=== PATIENT | male | born 1990 | race Caucasian/White ===

== ENCOUNTER 2019-03-13 15:44 | Inpatient (IN) | payer MEDICAID ==
[~2019-03-13] VITALS: Ht 182.9 cm; Wt 104.2 kg
[2019-03-13] MEDS ORDERED: LISI-661 PO (18:05)
[2019-03-13] MEDS ORDERED: ARIP5TAB8 PO (18:05)
[2019-03-13] MEDS ORDERED: ATOR20TA86 PO (18:05)
[2019-03-13] MEDS ORDERED: CARV3 PO (18:05)
[2019-03-13] MEDS ORDERED: SERT100T12 PO (18:05)
[2019-03-13] MEDS ORDERED: GABA-531 PO (18:05)
[2019-03-13] MEDS ORDERED: HALOPERIDOL 5 MG TABLET PO PRN (18:15)
[2019-03-13] MEDS ORDERED: PNEUMOCOCCAL VACCINE POLYVALENT 0.5 ML VIAL [PPSV23] IM ONE (18:45)
[2019-03-13 19:20] VITALS: BP 125/94
[2019-03-13 19:53] VITALS: BP 125/94
[2019-03-13 20:15] VITALS: BP 117/86
[2019-03-13] MEDS: LORazepam 2 MG TABLET PO PRN (20:29)
[2019-03-13] MEDS: ZOLPIDEM TARTRATE 10 MG TABLET PO PRN (21:00)
[2019-03-13 21:15] VITALS: BP 115/68
[2019-03-13 22:23] VITALS: BP 122/83
[2019-03-14] VITALS (9 sets, daily range): BP systolic 114–149; BP diastolic 78–98
[2019-03-14 08:24] LABS: BASOPHILS % (AUTO) 0.6 % (0.0-2.0); EOSINOPHILS % (AUTO) 5.5 % (1.0-6.0); HEMATOCRIT 41.6 % (41-53); LYMPHOCYTES # (AUTO) 1.6 K/uL (1.0-4.8); LYMPHOCYTES % (AUTO) 21.8 % (22.0-44.0); MEAN CORPUSCULAR HGB CONC 33.7 G/dL (31.0-37.0); MEAN CORPUSCULAR VOLUME 92 fL (80-100); MONOCYTES # (AUTO) 0.7 K/uL (0.1-1.0); MONOCYTES % (AUTO) 9.6 % (2.0-9.0); NEUTROPHILS # (AUTO) 4.6 K/uL (1.8-7.7); NEUTROPHILS % (AUTO) 62.5 % (40.0-70.0); PLATELET COUNT (AUTO) 218 K/uL (150-450); RED BLOOD CELL COUNT(AUTO) 4.51 MIL/uL (4.50-5.90)
[2019-03-14 08:25] LABS: HEMOGLOBIN A1C 5.2 % (4.5-6.2)
[2019-03-14 08:45] LABS: ALANINE AMINOTRANSFERASE 34 U/L (12-78); ALBUMIN 3.3 g/dL (3.4-5.0); ALKALINE PHOSPHATASE 60 U/L (46-116); ANION GAP 7 mmol/L (8-16); ASPARTATE AMINOTRANSFERASE 34 U/L (15-37); BILIRUBIN,TOTAL 0.5 mg/dL (0.1-1.0); CALCIUM, TOTAL 9.5 mg/dL (8.8-10.5); CARBON DIOXIDE 30 mmol/L (22-29); CHLORIDE 100 mmol/L (98-107); CHOL/HDL RATIO 3.8 (4.2-7.3); CHOLESTEROL 182 mg/dL (131-200); CREATININE 1.04 mg/dL (0.60-1.30); FREE T4 (FREE THYROXINE) 0.69 ng/dL (0.76-1.46); GLOMERULAR FILTR. RATE CALC > 60 mL/min (>60); GLUCOSE,RANDOM 82 mg/dL (70-110); HDL CHOLESTEROL 48 mg/dL (40-60); LDL CHOL (CALC.) 79 mg/dL (0-130); POTASSIUM 4.4 mmol/L (3.5-5.1); SODIUM SERUM 137 mmol/L (136-145); THYROID STIMULATING HORMONE 1.76 uIU/mL (0.36-3.74); TOTAL PROTEIN, SERUM 6.4 g/dL (6.4-8.2); TRIGLYCERIDES 274 mg/dL (15-150); UREA NITROGEN, BLOOD 13 mg/dL (7-18)
[2019-03-14] MEDS: LORazepam 2 MG TABLET PO PRN ×2 (10:07→14:45)
[2019-03-14] MEDS ORDERED: ChlordiazePOXIDE HCL 25 MG CAPSULE PO PRN (10:15)
[2019-03-14] MEDS: GABAPENTIN 300 MG CAPSULE PO SCH ×2 (12:48→16:20)
[2019-03-14] MEDS: NICOTINE POLACRILEX 2 MG LOZENGE PO PRN ×2 (12:48→17:22)
[2019-03-14] MEDS: ARIPiprazole 5 MG TABLET PO SCH (12:48)
[2019-03-14] MEDS ORDERED: ACETAMINOPHEN 325 MG TABLET PO PRN (13:45)
[2019-03-14] MEDS ORDERED: CloNIDine HCL 0.1 MG TABLET PO PRN (13:45)
[2019-03-14] MEDS: IBUPROFEN 600 MG TABLET PO PRN (18:59)
[2019-03-14] MEDS: SERTRALINE HCL 100 MG TABLET PO SCH (20:16)
[2019-03-15] VITALS (7 sets, daily range): BP systolic 116–132; BP diastolic 71–96
[2019-03-15] MEDS ORDERED: ChlordiazePOXIDE HCL 25 MG CAPSULE PO PRN (07:00)
[2019-03-15] MEDS: ARIPiprazole 5 MG TABLET PO SCH (08:25)
[2019-03-15] MEDS: LORazepam 2 MG TABLET PO PRN (08:26)
[2019-03-15] MEDS: GABAPENTIN 300 MG CAPSULE PO SCH ×3 (08:26→16:01)
[2019-03-15] MEDS: ChlordiazePOXIDE HCL 25 MG CAPSULE PO SCH ×4 (08:26→20:02)
[2019-03-15] MEDS: NICOTINE POLACRILEX 2 MG LOZENGE PO PRN (08:33)
[2019-03-15] MEDS: IBUPROFEN 600 MG TABLET PO PRN (18:21)
[2019-03-15] MEDS: SERTRALINE HCL 100 MG TABLET PO SCH (20:01)
[2019-03-15] MEDS: ZOLPIDEM TARTRATE 10 MG TABLET PO PRN (21:04)
[2019-03-16 05:46] VITALS: BP 110/73
[2019-03-16 05:49] VITALS: BP 110/73
[2019-03-16] MEDS: ChlordiazePOXIDE HCL 25 MG CAPSULE PO SCH ×2 (08:09→12:12)
[2019-03-16] MEDS: GABAPENTIN 300 MG CAPSULE PO SCH ×2 (08:09→12:12)
[2019-03-16] MEDS: ARIPiprazole 5 MG TABLET PO SCH (08:09)
[2019-03-16 08:17] VITALS: BP 125/81
[2019-03-16 08:20] VITALS: BP 125/81
[2019-03-16] MEDS: LORazepam 2 MG TABLET PO PRN (08:29)
[2019-03-16 09:50] VITALS: BP 120/80
[2019-03-16] MEDS: IBUPROFEN 600 MG TABLET PO PRN (09:50)
[2019-03-16] MEDS: NICOTINE POLACRILEX 2 MG LOZENGE PO PRN (10:55)
[2019-03-16] MEDS ORDERED: ARIP5TAB8 PO (11:55)
[2019-03-16] MEDS ORDERED: SERT100T12 PO ×2 (11:55→13:29)
[2019-03-16] MEDS ORDERED: GABA-531 PO (13:29)
[2019-03-17] MEDS ORDERED: ChlordiazePOXIDE HCL 10 MG CAPSULE PO PRN (07:00)
[2019-03-17] MEDS ORDERED: ChlordiazePOXIDE HCL 10 MG CAPSULE PO SCH (09:00)
[2019-03-18] MEDS ORDERED: ChlordiazePOXIDE HCL 10 MG CAPSULE PO PRN (07:00)
== END 2019-03-16 14:30 | disposition home or self-care (01) | DRG 751 ==
LOC: B2S 18:31 → UNDOADMIN 18:31 → B3A 18:31 → B2S 18:35 → B3A 18:35
PROVIDERS: ADMIT Psychiatry & Neurology Child & Adolescent Psychiatry; ATTEND Psychiatry & Neurology Child & Adolescent Psychiatry
DX: F33.2 Major depressive disorder, recurrent severe without psychotic features (principal); F25.9 Schizoaffective disorder, unspecified; E78.5 Hyperlipidemia, unspecified; F10.20 Alcohol dependence, uncomplicated; G89.29 Other chronic pain; I10 Essential (primary) hypertension; F41.9 Anxiety disorder, unspecified; F17.210 Nicotine dependence, cigarettes, uncomplicated; F12.10 Cannabis abuse, uncomplicated; Z79.899 Other long term (current) drug therapy
CPT/HCPCS: 80074; 83036; 84439; 84443; 87081; 90732

== ENCOUNTER 2020-02-15 06:20 | Inpatient (IN) | payer MEDICAID ==
[~2020-02-15] VITALS: Ht 182.9 cm; Wt 102.3 kg
[~2020-02-15 06:20] MED LIST: ARIP5TAB8 PO; GABA-1181 PO; SERT100T12 PO
[2020-02-15] MEDS ORDERED: HALOPERIDOL 5 MG TABLET PO PRN (09:45)
[2020-02-15 10:00] VITALS: BP 124/92
[2020-02-15] MEDS: ARIPiprazole 5 MG TABLET PO SCH (13:36)
[2020-02-15] MEDS: GABAPENTIN 300 MG CAPSULE PO SCH ×2 (13:36→18:26)
[2020-02-15] MEDS: LORazepam 2 MG TABLET PO PRN ×2 (13:36→18:46)
[2020-02-15 16:27] VITALS: BP 128/85
[2020-02-15] MEDS: NICOTINE 14 MG/24 HOUR PATCH TD SCH (19:09)
[2020-02-15] MEDS: SERTRALINE HCL 100 MG TABLET PO SCH (21:16)
[2020-02-16 00:30] VITALS: BP 121/72
[2020-02-16] MEDS: ZOLPIDEM TARTRATE 10 MG TABLET PO PRN ×2 (00:37→21:27)
[2020-02-16] MEDS ORDERED: PNEUMOCOCCAL VACCINE POLYVALENT 0.5 ML VIAL [PPSV23] IM ONE (05:30)
[2020-02-16] MEDS ORDERED: LOPERAMIDE HCL 2 MG CAPSULE PO PRN (06:45)
[2020-02-16] MEDS ORDERED: MAGNESIUM HYDROXIDE SUSPENSION 30 ML UDCUP PO PRN (06:45)
[2020-02-16] MEDS ORDERED: ACETAMINOPHEN 325 MG TABLET PO PRN (06:45)
[2020-02-16] MEDS ORDERED: ALBUTEROL SULFATE HFA 90 MCG/PUFF 8 GM INHALER IH PRN (06:45)
[2020-02-16] MEDS ORDERED: CloNIDine HCL 0.1 MG TABLET PO PRN (06:45)
[2020-02-16] MEDS ORDERED: NICOTINE 14 MG/24 HOUR PATCH TD PRN (06:45)
[2020-02-16] MEDS ORDERED: PETROLATUM,WHITE 28 GM JELLY TP PRN (06:45)
[2020-02-16] MEDS ORDERED: MAG HYDROX/AL HYDROX/SIMETH ES 30 ML SUSPENSION UDCUP PO PRN (06:45)
[2020-02-16] MEDS ORDERED: IBUPROFEN 400 MG TABLET PO PRN (06:45)
[2020-02-16] MEDS ORDERED: ONDANSETRON HCL 4 MG TABLET PO PRN (06:45)
[2020-02-16] MEDS ORDERED: DOCUSATE SODIUM 100 MG CAPSULE PO PRN (06:45)
[2020-02-16] MEDS ORDERED: GuaiFENesin/D-METHORPHAN [SUGAR-FREE] 200-20MG/10 ML SYRUP UDCUP PO PRN (06:45)
[2020-02-16 07:58] LABS: BASOPHILS % (AUTO) 0.5 % (0.0-2.0); EOSINOPHILS % (AUTO) 5.4 % (1.0-6.0); HEMATOCRIT 41.1 % (41-53); HEMOGLOBIN 14.1 g/dL (13.5-17.5); LYMPHOCYTES # (AUTO) 1.6 K/uL (1.0-4.8); LYMPHOCYTES % (AUTO) 22.7 % (22.0-44.0); MEAN CORPUSCULAR HEMOGLOBIN 30.9 pg (26.0-34.0); MEAN CORPUSCULAR HGB CONC 34.2 G/dL (31.0-37.0); MEAN CORPUSCULAR VOLUME 90 fL (80-100); MONOCYTES # (AUTO) 0.7 K/uL (0.1-1.0); MONOCYTES % (AUTO) 9.4 % (2.0-9.0); NEUTROPHILS # (AUTO) 4.4 K/uL (1.8-7.7); PLATELET COUNT (AUTO) 190 K/uL (150-450); RED BLOOD CELL COUNT(AUTO) 4.56 MIL/uL (4.50-5.90); RED CELL DISTRIBUTION WIDTH 12.8 % (11.5-14.5)
[2020-02-16 08:04] LABS: HEMOGLOBIN A1C 5.2 % (3.8-5.6)
[2020-02-16 08:31] LABS: ALANINE AMINOTRANSFERASE 45 U/L (12-78); ALBUMIN 3.8 g/dL (3.4-5.0); ALKALINE PHOSPHATASE 79 U/L (46-116); ANION GAP 8 mmol/L (8-16); ASPARTATE AMINOTRANSFERASE 23 U/L (15-37); BILIRUBIN,TOTAL 0.5 mg/dL (0.1-1.0); CALCIUM, TOTAL 9.2 mg/dL (8.8-10.5); CARBON DIOXIDE 29 mmol/L (22-29); CHLORIDE 101 mmol/L (98-107); CHOL/HDL RATIO 3.1 (4.2-7.3); CHOLESTEROL 134 mg/dL (131-200); CREATININE 1.13 mg/dL (0.60-1.30); FREE T4 (FREE THYROXINE) 0.89 ng/dL (0.76-1.46); GLOMERULAR FILTR. RATE CALC > 60 mL/min (>60); GLUCOSE,RANDOM 93 mg/dL (70-110); HDL CHOLESTEROL 43 mg/dL (40-60); LDL CHOL (CALC.) 59 mg/dL (0-130); SODIUM SERUM 138 mmol/L (136-145); THYROID STIMULATING HORMONE 1.44 uIU/mL (0.36-3.74); TOTAL PROTEIN, SERUM 7.7 g/dL (6.4-8.2); TRIGLYCERIDES 158 mg/dL (15-150); UREA NITROGEN, BLOOD 18 mg/dL (7-18)
[2020-02-16] MEDS: ATORVASTATIN CALCIUM 40 MG TABLET PO SCH (08:44)
[2020-02-16] MEDS: LISINOPRIL 20 MG TABLET PO SCH (08:44)
[2020-02-16] MEDS: NICOTINE 14 MG/24 HOUR PATCH TD SCH (08:44)
[2020-02-16] MEDS: GABAPENTIN 300 MG CAPSULE PO SCH ×3 (08:44→16:08)
[2020-02-16] MEDS: ARIPiprazole 5 MG TABLET PO SCH (08:44)
[2020-02-16 08:47] VITALS: BP 124/69
[2020-02-16] MEDS: LORazepam 2 MG TABLET PO PRN ×2 (10:51→17:08)
[2020-02-16 16:22] VITALS: BP 128/88
[2020-02-16] MEDS: SERTRALINE HCL 100 MG TABLET PO SCH (20:23)
[2020-02-17 00:05] VITALS: BP 125/73
[2020-02-17] MEDS: LORazepam 2 MG TABLET PO PRN ×2 (05:16→12:35)
[2020-02-17] MEDS: ARIPiprazole 5 MG TABLET PO SCH (08:50)
[2020-02-17] MEDS: LISINOPRIL 20 MG TABLET PO SCH (08:51)
[2020-02-17] MEDS: GABAPENTIN 300 MG CAPSULE PO SCH ×3 (08:51→17:14)
[2020-02-17] MEDS: ATORVASTATIN CALCIUM 40 MG TABLET PO SCH (08:51)
[2020-02-17] MEDS: NICOTINE 14 MG/24 HOUR PATCH TD SCH (08:51)
[2020-02-17 09:38] VITALS: BP 113/78
[2020-02-17] MEDS ORDERED: LISI-662 PO (14:13)
[2020-02-17] MEDS ORDERED: ATOR40TA28 PO (14:13)
[2020-02-17 16:00] VITALS: BP 122/78
== END 2020-02-17 21:48 | disposition home or self-care (01) | DRG 885 ==
LOC: B2S 09:41
PROVIDERS: ADMIT Psychiatry & Neurology Child & Adolescent Psychiatry; ATTEND Psychiatry & Neurology Child & Adolescent Psychiatry
DX: F33.2 Major depressive disorder, recurrent severe without psychotic features (principal); F41.9 Anxiety disorder, unspecified; I10 Essential (primary) hypertension; E78.5 Hyperlipidemia, unspecified; F19.10 Other psychoactive substance abuse, uncomplicated; F10.20 Alcohol dependence, uncomplicated; Y90.9 Presence of alcohol in blood, level not specified
CPT/HCPCS: 83036; 84439; 84443; 86592